=== PATIENT | female | born 1975 | race Caucasian/White ===

== ENCOUNTER 2019-11-10 14:13 | Emergency (ER) | payer BC, SELFPAY ==
[2019-11-10 14:35] VITALS: BP 115/69; PULSE 73; RESP 16; TEMP 36.9; O2SAT 99
--- NOTE | 2019-11-10 14:50 | ED.GENADULT ---
HPI - General Adult General Chief complaint: Nausea/Vomiting/Diarrhea Stated complaint: abd pain/nausea/vomiting/diarrhea Time Seen by Provider: 11/10/19 14:52 Source: patient and RN notes reviewed Mode of arrival: ambulatory Limitations: no limitations History of Present Illness HPI narrative: This is a 43 years old female presents to the office for an evaluation of cronh's flare . States, she has been dealing with pain for about one week. Symptoms include nauseous, vomiting, diarrhea and decreased appetite. Denies fever. Stated when she gets Crohn's flare her GI doctor often prescribe her prednisone. Admits to history of duodenal ulcer about 15 years ago. No recent abdominal surgery. She take [id number] antiacid medicine for her nauseous. HPI - Nausea/Vomiting/Diarrhea General Chief complaint: Nausea/Vomiting/Diarrhea Stated complaint: N/V/D Time Seen by Provider: 08/17/19 04:20 Source: patient Mode of arrival: ambulatory Limitations: no limitations History of Present Illness HPI Narrative: Patient is a 43-year-old female with history of Crohn's disease who presents for evaluation of nausea, vomiting diarrhea. Patient reports history of vomiting since Monday, she has had watery diarrhea without blood or mucus in it. No fever. Numerous sick contacts at home with similar symptoms. She takes 6-mercaptopurine for her Crohn's disease, Crohn's is currently in remission. She is not on any immune modulator therapy. Patient denies intermittent abdominal cramping, no current pain. Patient states she came in because she started to feel very dehydrated. Related Data Home Medications Medication Instructions Recorded Confirmed calcium carbonate [Tums] 200 mg PO DAILY 11/10/19 11/10/19 Allergies Allergy/AdvReac Type Severity Reaction Status Date / Time No Known Allergies Allergy Verified 11/10/19 14:36 Review of Systems Review of Systems: Narrative: CONSTITUTIONAL: Reports feeling malaise secondary to pain ENT: Denies congestion CARDIOVASCULAR: Denies chest pain RESPIRATORY: Denies cough GASTROINTESTINAL: Reports abdominal pain, nausea, vomiting, diarrhea. Denies bloody stools/dark color stools GENITOURINARY: Denies urinary symptoms SKIN: Denies rash MUSCULOSKELETAL: Denies acute back pain NEUROLOGIC: Denies lightheaded PMFSH Past Medical History Medical History Crohn's disease Social History Social History Smoking status: Current every day smoker Gender identity (if verbalized by the patient): Female Comments At time of signature, I agree with nursing past medical, surgical, social and family history. There is no relevant family history pertinent to the presenting complaint. Exam Narrative: Exam Narrative: GENERAL: This is a well-developed patient, older than state age, in no apparent distress. CARDIOVASCULAR: Regular rate and rhythm without murmurs, gallops, or rubs. RESPIRATORY: Clear to auscultation. Breath sounds equal bilaterally. No wheezes, rales, or rhonchi. GASTROINTESTINAL: Abdomen soft, tenderness throughout with palpation, nondistended, no rebound. Bowel sounds are active. Guarding noted. SKIN: warm, intact with no suspicious lesions or rash, good texture and turgor. NEURO: awake, alert, and oriented to person, place and time. There were no obvious focal neurologic abnormalities. Steady gait Giovanny Coma Scale Eye Opening: Spontaneous 4 [place] Coma Scale Motor: Obeys Commands 6 [place] Coma Scale Verbal: Oriented 5 Course Vital Signs Vital signs: Vital Signs Temperature 98.5 F 11/10/19 14:35 Pulse Rate 73 11/10/19 14:35 Respiratory Rate 16 11/10/19 14:35 Blood Pressure 115/69 11/10/19 14:35 Pulse Oximetry 99 11/10/19 14:35 Temperature 98.5 F 11/10/19 14:35 Pulse Rate 73 11/10/19 14:35 Respiratory Rate 16 11/10/19 14:35 Blood Press
== END 2019-11-10 15:04 | disposition home or self-care (01) ==
PROVIDERS: Emergency Provider Nurse Practitioner; PCP Family Medicine
DX: R10.9 Unspecified abdominal pain (principal); K50.90 Crohn's disease, unspecified, without complications; F17.200 Nicotine dependence, unspecified, uncomplicated; I34.1 Nonrheumatic mitral (valve) prolapse; R01.1 Cardiac murmur, unspecified
CPT/HCPCS: 99213; G0463

== ENCOUNTER 2020-08-17 08:25 | Emergency (ER) | payer BC, SELFPAY ==
--- NOTE | 2020-08-17 08:32 | ED.URI ---
HPI - URI/Sore Throat General Chief Complaint: Upper Respiratory Infection Stated Complaint: Lung Pain Time Seen by Provider: 08/17/20 08:40 Source: patient and RN notes reviewed Mode of arrival: ambulatory Limitations: no limitations History of Present Illness HPI Narrative: 42-year-old female presents with concern for lung pain when she coughs or takes a deep breath. Reports pain near the base of her left rib cage when she coughs, takes a deep breath. Reports increased cough for the past 1-1/2 weeks. Reports she had a sinus infection 1 month ago for which she began coughing, she states. Reports symptoms of that infection have resolved, reports the cough improved but is not gone. Reports she is concerned about the pain in her left lung when she coughs. She denies fever, chills, sweats, nausea, vomiting, loss of sense of taste or smell, sore throat, ear pain, nasal congestion, rhinorrhea, productive cough. Reports she had a Covid exposure a month ago and was tested, tested negative. MD elicited complaint: cough Related Data Home Medications Medication Instructions Recorded Confirmed adalimumab [Humira(CF) Pen] 40 mg SUBCUT BID 08/17/20 08/17/20 metoclopramide HCl 10 mg PO DAILY 08/17/20 08/17/20 sucralfate 1 g PO DAILY 08/17/20 08/17/20 Allergies Allergy/AdvReac Type Severity Reaction Status Date / Time No Known Allergies Allergy Verified 08/17/20 08:31 Review of Systems Review of Systems: Narrative: CONSTITUTIONAL: Denies malaise, chills, sweats, or fever. EYES: Denies visual changes, redness, or discharge. ENT: Denies rhinorrhea, congestion, sinus pain, otalgia and sore throat. CARDIOVASCULAR: Denies chest pain, palpitations, or edema. RESPIRATORY: Reports cough. Denies dyspnea. Reports left lung pain with coughing and deep breathing GASTROINTESTINAL: Denies abdominal pain, nausea, vomiting, diarrhea SKIN: Denies rash or itching. MUSCULOSKELETAL: Denies myalgia. NEUROLOGIC: Denies headache. All systems reviewed & are unremarkable except as noted in HPI and below PMFSH Past Medical History Medical History (Updated 08/17/20 @ 08:48 by Luanne Arriaza NP) Crohn's disease Social History Social History (Reviewed 11/10/19 @ 15:10 by JERSON Torres Smoking status: Current every day smoker Gender identity (if verbalized by the patient): Female Comments At time of signature, agree with nursing past medical, surgical, social and family history. There is no relevant family history pertinent to the presenting complaint Exam Narrative: Exam Narrative: GENERAL: Well-appearing, well-nourished, and in no acute distress. HEAD: Normocephalic EYES: PERRLA, conjunctivae clear ENT: Nares clear, turbinates pink, no discharge. Mucous membranes moist. TM pearly limon with dull light reflex bilaterally; no tragal tenderness. Oropharynx not erythematous without lesions. Tonsils not enlarged and without exudate, no drooling, no hoarseness, no trismus, uvula midline. NECK: Supple. No lymphadenopathy CHEST: Clear to auscultation, breath sounds equal. No wheezing, rhonchi, rales, or stridor. No respiratory distress, speaks in full sentences. No chest bruising, chest wall tenderness palpation HEART: Regular rate and rhythm. No murmur heard. SKIN: Warm, dry, no rash. NEURO: Alert and oriented x3. PSYCH: Normal mood and affect Course Course Emergency Course: Patient is aware of diagnosis, understands and agrees to treatment plan. Anticipatory guidance given. Patient agrees to follow-up as directed and is aware of reasons to seek care at the emergency department. Portions of this record may have been created with voice recognition software Vital Signs Vital signs: Vital Signs Temperature 97.9 F 08/17/20 08:33 Pulse Rate 82 08/17/20 08:33 Respiratory Rate 16 08/17/20 08:33 Blood Pressure 124/62 08/17/20 08:33 Pulse Oximetry 100 08/17/20 08:33 Temperature 97.9 F 08/17/20 08:42 Pulse Rate 82
[2020-08-17 08:33] VITALS: BP 124/62; PULSE 82; RESP 16; TEMP 36.6; O2SAT 100
[2020-08-17 08:42] VITALS: BP 124/62; PULSE 82; RESP 16; TEMP 36.6; O2SAT 100
== END 2020-08-17 08:53 | disposition home or self-care (01) ==
PROVIDERS: Emergency Provider Nurse Practitioner
DX: R09.1 Pleurisy (principal); F17.200 Nicotine dependence, unspecified, uncomplicated; K50.90 Crohn's disease, unspecified, without complications
CPT/HCPCS: 99213; G0463

== ENCOUNTER 2020-09-12 07:01 | Outpatient (NON) | payer BC, SELFPAY ==
[2020-09-12 21:50] LABS: SARS-CoV-2 RNA PCR Negative
== END 2020-09-12 07:02 ==
LOC: ANHCOVIDDT 07:02
PROVIDERS: PCP Family Medicine; Visit Provider Nurse Practitioner Family
DX: Z20.822 Contact with and (suspected) exposure to COVID-19 (principal); R05 Cough
CPT/HCPCS: C9803; U0003; U0005

== ENCOUNTER 2020-09-18 13:58 | Emergency (ER) | payer BC, SELFPAY ==
[2020-09-18 14:14] VITALS: BP 110/86; PULSE 85; RESP 16; TEMP 36.5; O2SAT 100
--- NOTE | 2020-09-18 14:18 | PC.NURSE ---
no preg test due to prior hysterectomy
[2020-09-18 14:27] LABS: Basophils Percent Auto 0.3 % (0.2-1.2); Eosinophils Absolute Auto 0.1 K/mm3 (0-0.3); Eosinophils Percent Auto 0.7 % (0-4.4); Hematocrit 43.1 % (37.0-47.0); Hemoglobin 14.7 g/dL (12.0-15.0); Immature Granulocyte Absolute 0.03 K/mm3 (0.00-0.031); Immature Granulocyte Percent A 0.3 % (0-0.5); Lymphocytes Absolute Auto 2.62 K/mm3 (0.9-3.2); Lymphocytes Percent Auto 26.7 % (18.3-44.2); Mean Corpuscular HGB Conc 34.1 g/dl (32-36); Mean Corpuscular Hemoglobin 31.4 pg (26-34); Mean Corpuscular Volume 92.1 fl (80-100); Mean Platelet Volume 9.7 fl (7.4-10.4); Monocytes Absolute Auto 0.6 K/mm3 (0.1-0.6); Monocytes Percent Auto 6.5 % (2.6-8.5); Neutrophils Absolute Auto 6.4 K/mm3 (1.3-6.7); Neutrophils Percent Auto 65.5 % (45.5-73.1); Platelet Count Result 367 k/mm3 (150-375); Red Blood Count 4.68 M/mm3 (4.2-5.4); Red Cell Distribution Width 12.7 % (11.5-14.5); White Blood Count 9.8 K/mm3 (4.5-10.0)
[2020-09-18 14:40] LABS: Alanine Aminotransferase 14 U/L (4-35); Albumin Level 4.5 g/dL (3.5-5.1); Alkaline Phosphatase 58 U/L (38-126); Anion Gap 5 mmol/L (8-16); Aspartate Amino Transferase 26 U/L (14-36); Bilirubin,Total 0.5 mg/dL (0.2-1.3); Blood Urea Nitrogen 12 mg/dL (7-17); Calcium 9.7 mg/dL (8.4-10.2); Carbon Dioxide 30 mmol/L (22-30); Chloride 101 mmol/L (98-107); Estimated CRCL calculation 71 ml/min; Estimated Glomerular Filt Rate > 60; Glucose 105 mg/dL (65-105); Lipase 53 U/L (23-300); Potassium 4.1 mmol/L (3.4-5.0); Sodium 136 mmol/L (137-145)
[2020-09-18 14:44] LABS: Add Urine Microscopic? YES; Appearance Urine Clear (Clear); Bilirubin Urine 1+ (Negative); Blood Urine 3+ (Negative); Color Urine Amber (Yellow); Glucose Urine UA Negative (Negative); Ketones Urine Trace mg/dL (Negative); Leukocyte Esterase Ur Negative LEU/UL (Negative); Mucus Urine Heavy /lpf; Nitrate Urine Negative (Negative); Protein Urine 2+ mg/dL (Negative); RBC Urine 21-50 /hpf (0-2); Squamous Epithelial Cell Urine Many /hpf (Few); WBC Urine 0-3 /hpf
[2020-09-18 14:50] LABS: Specific Grav Ur 1.039 (1.001-1.035)
[2020-09-18 15:21] VITALS: BP 123/81; PULSE 73
[2020-09-18 15:22] VITALS: BP 125/83; BP 134/86; PULSE 74; PULSE 82
--- NOTE | 2020-09-18 16:09 | ED.GENADULT ---
HPI - General Adult General Chief complaint: Nausea/Vomiting/Diarrhea Stated complaint: sinus congestion, n/v/d, low grade temp Time Seen by Provider: 09/18/20 15:27 History of Present Illness HPI narrative: Patient is a 44-year-old female who presents the emergency department with chief complaint of sinus congestion and vomiting. The patient reports that she was tested for Covid on the and was negative the patient reports that she has had sinus drainage and gets vomiting after she has a lot of drainage. Patient reports that she is not had a fever she was treated with Augmentin and has had some diarrhea after that. Patient states that it feels as though she has a bad sinus infection. Related Data Home Medications Medication Instructions Recorded Confirmed adalimumab [Humira(CF) Pen] 40 mg SUBCUT BID 08/17/20 08/17/20 metoclopramide HCl 10 mg PO DAILY 08/17/20 08/17/20 sucralfate 1 g PO DAILY 08/17/20 08/17/20 Allergies Allergy/AdvReac Type Severity Reaction Status Date / Time No Known Allergies Allergy Verified 09/18/20 14:18 Review of Systems Review of Systems: Narrative: A 10 system review of systems was completed on the patient and is negative except for what is stated in the HPI. Nursing and ancillary documentation was reviewed. [facility] Past Medical History Medical History (Updated 09/18/20 @ 16:12 by Rodri Chamorro MD) Crohn's disease Social History Social History Smoking status: Current every day smoker Gender identity (if verbalized by the patient): Female Exam Narrative: Exam Narrative: GENERAL: Well-appearing, well-nourished, and in no acute distress. HEAD: Normocephalic, atraumatic. EYES: PERRLA and EOMI. ENT: Nares clear, no rhinorrhea or epistaxis. Mucous membranes moist. NECK: Supple. CHEST: Clear to auscultation. No respiratory distress. HEART: Regular rate and rhythm. No murmur heard. Normal peripheral pulses. ABDOMEN: Soft, nontender, nondistended, normal active bowel sounds. EXTREMITIES: Normal range of motion. No edema. SKIN: Warm, dry, no rash. NEURO: No focal deficits. Alert and oriented x3. PSYCH: Normal mood and affect. Course Vital Signs Vital signs: Vital Signs Temperature 36.5 C 09/18/20 14:14 Pulse Rate 85 09/18/20 14:14 Respiratory Rate 16 09/18/20 14:14 Blood Pressure 110/86 09/18/20 14:14 Pulse Oximetry 100 09/18/20 14:14 Temperature 36.5 C 09/18/20 14:14 Pulse Rate 82 09/18/20 15:22 Respiratory Rate 16 09/18/20 14:14 Blood Pressure 134/86 09/18/20 15:22 Pulse Oximetry 100 09/18/20 14:14 Medical Decision Making Vital Signs Vital Signs: Vital Signs Temperature 36.5 C 09/18/20 14:14 Pulse Rate 85 09/18/20 14:14 Respiratory Rate 16 09/18/20 14:14 Blood Pressure 110/86 09/18/20 14:14 Pulse Oximetry 100 09/18/20 14:14 Temperature 36.5 C 09/18/20 14:14 Pulse Rate 82 09/18/20 15:22 Respiratory Rate 16 09/18/20 14:14 Blood Pressure 134/86 09/18/20 15:22 Pulse Oximetry 100 09/18/20 14:14 Lab Data Result diagrams: 09/18/20 14:19 09/18/20 14:19 Labs: Lab Results 09/18/20 09/18/20 09/18/20 Range/Units 14:19 14:19 14:23 WBC 9.8 (4.5-10.0) K/mm3 RBC 4.68 (4.2-5.4) M/mm3 Hgb 14.7 (12.0-15.0) g/dL Hct 43.1 (37.0-47.0) % MCV 92.1 (80-100) fl MCH 31.4 (26-34) pg MCHC 34.1 (32-36) g/dl RDW 12.7 (11.5-14.5) % Plt Count 367 (150-375) k/mm3 MPV 9.7 (7.4-10.4) fl Immature Gran % (Auto) 0.3 (0-0.5) % Neut % (Auto) 65.5 (45.5-73.1) % Lymph % (Auto) 26.7 (18.3-44.2) % Dickens % (Auto) 6.5 (2.6-8.5) % Eos % (Auto) 0.7 (0-4.4) % Baso % (Auto) 0.3 (0.2-1.2) % Lymph # (Auto) 2.62 (0.9-3.2) K/mm3 Dickens # (Auto) 0.6 (0.1-0.6) K/mm3 Eos # (Auto) 0.1 (0-0.3) K/mm3 Baso # (Auto) 0.0 (0.0-0.1) K
== END 2020-09-18 16:15 | disposition home or self-care (01) ==
PROVIDERS: Emergency Medicine; Emergency Provider Emergency Medicine; PCP Family Medicine
DX: J01.90 Acute sinusitis, unspecified (principal); K50.90 Crohn's disease, unspecified, without complications; F17.200 Nicotine dependence, unspecified, uncomplicated
CPT/HCPCS: 36415; 80053; 81001; 83690; 85025; 99283

== ENCOUNTER 2020-11-11 14:46 | Outpatient (CLI) | payer BC, SELFPAY ==
--- NOTE | ~2020-11-11 | CT_ITS ---
EXAMINATION: CT sinus wo con DATE: 11/11/2020 15:06 INDICATION: Nasal turbinate hypertrophy TECHNIQUE: Computed tomography (CT) of the paranasal sinuses was performed without contrast. Iterativ e reconstruction technique was employed. Exam dose: 305.77 mGy-cm total exam DLP. COMPARISON: 01/19/2006 CT sinuses FINDINGS: There is rightward deviation of the nasal septum. The nasal turbinates are moderately promi nent in size. The paranasal sinuses are normally developed and aerated. The ostiomeatal units are patent. There is partial opacification of the right mastoid air cells. The left mastoid air cells are normall y developed and aerated. Middle and inner ear apparatus appear unremarkable bilaterally. IMPRESSION: Right mastoid effusions Rightward deviation of nasal septum Reviewed, dictated and finalized at [facility] Reviewed, dictated and finalized at [facility].
== END 2020-11-11 14:47 | disposition home or self-care (01) ==
PROVIDERS: PCP Family Medicine; Visit Provider Otolaryngology
DX: J32.9 Chronic sinusitis, unspecified (principal); J34.3 Hypertrophy of nasal turbinates; J34.89 Other specified disorders of nose and nasal sinuses; R09.82 Postnasal drip; R44.8 Other symptoms and signs involving general sensations and perceptions; Z87.09 Personal history of other diseases of the respiratory system; J34.2 Deviated nasal septum
CPT/HCPCS: 70486

== ENCOUNTER → 2020-12-08 00:14 | Outpatient (CLI) | payer BC, SELFPAY ==
[2020-12-08 20:45] LABS: SARS-CoV-2 RNA PCR Negative
== END ==
PROVIDERS: PCP Family Medicine; Visit Provider Otolaryngology
DX: Z01.812 Encounter for preprocedural laboratory examination (principal); Z20.822 Contact with and (suspected) exposure to COVID-19
CPT/HCPCS: C9803; U0003; U0005

== ENCOUNTER 2020-12-08 08:21 | Outpatient (CLI) | payer BC, SELFPAY ==
--- NOTE | 2020-12-08 08:30 | ECG_ITS ---
Measurements Intervals [place] Rate: 62 P: -10 MO: 167 QRS: 73 QRSD: 82 T: 66 QT: 376 QTc: 383 Interpretive Statements SINUS RHYTHM BASELINE WANDER- I, II, III, AVR, AVL, AVF NORMAL ECG Electronically Signed On 12-08-2020 8:49:26 CDT by Song Vazquez D.O.
== END 2020-12-08 08:22 | disposition home or self-care (01) ==
PROVIDERS: PCP Family Medicine; Visit Provider Otolaryngology
DX: E78.5 Hyperlipidemia, unspecified (principal); Z01.818 Encounter for other preprocedural examination
CPT/HCPCS: 93005

== ENCOUNTER 2020-12-11 00:36 | Day surgery (SDC) | payer BC, SELFPAY ==
[2020-11-27 11:12] VITALS: BMI 20.9
--- NOTE | 2020-12-10 10:41 | PM.IMHP ---
H&P: HPI History of Present Illness Date/Time: 12/10/20 10:41 45-year-old female presents for planned surgical procedures. Reports no new changes in her symptoms or medical history. Chief Complaint: Nasal obstruction, septal deviation, inferior turbinate hypertrophy Review of Systems Constitutional: Constitutional: Denies fatigue, Denies fever(s) and Denies lethargy Eyes: Eyes: Denies blurry vision and Denies change in vision ENT: Reports as per HPI Cardiovascular: Cardiovascular: Denies chest pain Respiratory: Respiratory: Denies cough Endocrine: Endocrine: Denies fatigue Hematologic/Lymphatic: Hematologic/Lymphatic: Denies easy bleeding, Denies easy bruising and Denies lymphadenopathy Allergic/Immunologic: Allergic/Immunologic: Denies seasonal rhinorrhea [facility] Past Medical History Medical History (Updated 12/10/20 @ 10:42 by Damir Brito MD) Crohn's disease Family History Family History (Updated 10/06/20 @ 15:51 by Meghna Chou CMA) Father Diabetes mellitus Hypertension Mother Diabetes mellitus Grandparent Diabetes mellitus Heart disease Grandparent Diabetes mellitus Social History Social History (Updated 10/06/20 @ 15:52 by Meghna Chou BUILDING TECH) Smoking packs per day: 0.5 Smoking cigarettes per day: 10.0 Years smoked: 16 Smoking pack-years: 8.00 Smoking status: Current every day smoker Tobacco type: cigarettes Alcohol intake: never Substance use: never Substance use type: does not use Gender identity (if verbalized by the patient): Female Spiritual care concerns: No Meds Home Medications and Allergies Home Medications Medication Instructions Recorded Confirmed Type adalimumab [Humira(CF) Pen] 40 mg SUBCUT Q14D 08/17/20 11/27/20 History metoclopramide HCl 10 mg PO DAILY 08/17/20 11/27/20 History sucralfate 1 g PO DAILY 08/17/20 11/27/20 History fluticasone propionate 50 1 - 2 spray INTRANASAL DAILY #16 g 10/06/20 11/27/20 Rx mcg/actuation nasal spray,suspension omeprazole 40 mg capsule,delayed 40 mg PO BID 10/06/20 11/27/20 History release atorvastatin [Lipitor] 5 mg PO HS 11/27/20 11/27/20 History budesonide 3 mg PO BID 11/27/20 11/27/20 History mupirocin 1 applic TOPICAL DAILY 11/27/20 11/27/20 History Allergies Allergy/AdvReac Type Severity Reaction Status Date / Time No Known Allergies Allergy Verified 11/27/20 11:09 Exam Const: General: cooperative, healthy appearing, comfortable, well developed and alert HENMT: Head: normal to inspection, normocephalic and atraumatic Ears: hearing grossly normal bilaterally, external ears normal, TM's normal bilaterally and EAC's normal General nose exam: Normal external nose present, Normal nares present, No nasal polyps present, mucous membranes and turbinates abnormal, abnormal septum and Other nasal findings present ( Septal deviation inferior turbinate hypertrophy) Face and sinus: normal facial exam Mouth: Yes Normal oral and palatal mucosa present, Yes lip normal, Yes tongue normal, Yes oropharynx normal and Yes moist mucous membranes Teeth and gingiva: dentition normal and gingiva normal Throat: posterior oropharynx normal, tonsils normal and uvula midline Eyes: General: appearance normal, both eyes and all related structures Periorbital: periorbital findings normal Eyelids: eyelids normal Conjunctivae: conjunctivae normal Sclera: sclerae normal Neck: Neck: normal visual inspection, full ROM and no lymphadenopathy Thyroid: thyroid normal Lymphatic: no lymphadenopathy noted Resp: Effort & Inspection: normal respiratory effort and able to speak in complete sentences Cardio: Jugular venous distension: no JVD Neuro: Cranial nerves: Yes CN's II-XII intact bilaterally Assessment and Plan Assessment and plan (1) Hypertrophy of both inferior nasal turbinates: Code(s): J34.3 - Hypertrophy of nasal turbinates Status: Acute Assessment and Plan: plan i
--- NOTE | 2020-12-11 07:09 | WPDHPUPDATE1 ---
History and Physical Update Update Date/Time: 12/11/20 07:09 History and Physical has been reviewed, including an updated exam of the patient. There are NO changes in the patient's condition. Risks, benefits, and alternatives have been discussed and questions answered. Patient agrees to proceed with procedure.
[2020-12-11 12:18] VITALS: BP 104/63; PULSE 65; RESP 16; TEMP 36.3; O2SAT 100
[2020-12-11] MEDS: ACETAMINOPHEN 500 MG TABLET 1000 MG PO (12:23)
--- NOTE | 2020-12-11 12:31 | WPDANESEPPF ---
Anes - Initial Pre Proc Eval Procedure: Operation Date: 12/11/20 13:30 Proposed Procedures p Septoplasty, - Damir Brito MD s Bilateral Inferior Turbinectomy - Damir Brito MD Date/Time: 12/11/20 12:31 Surgeon: Damir Brito MD Pre Op Diagnosis: septal deviation, turbinate hypertrophy Patient Data Age: 45 Gender: F Height: 5 ft 2 in Weight: 52.35 kg Allergies Allergy/AdvReac Type Severity Reaction Status Date / Time No Known Allergies Allergy Verified 12/11/20 12:19 Home Medications Medication Instructions Recorded Confirmed Type adalimumab [Humira(CF) Pen] 40 mg SUBCUT Q14D 08/17/20 12/11/20 History metoclopramide HCl 10 mg PO DAILY 08/17/20 12/11/20 History fluticasone propionate 50 1 - 2 spray INTRANASAL DAILY #16 g 10/06/20 12/11/20 Rx mcg/actuation nasal spray,suspension omeprazole 40 mg capsule,delayed 40 mg PO BID 10/06/20 12/11/20 History release atorvastatin [Lipitor] 5 mg PO HS 11/27/20 12/11/20 History budesonide 3 mg PO BID 11/27/20 12/11/20 History mupirocin 1 applic TOPICAL DAILY 11/27/20 12/11/20 History Patient hx anesthesia problems: post op nausea/vomiting Family hx anesthesia problems: none PMFSH Past Medical History Medical History Crohn's disease Hyperlipidemia MVP (mitral valve prolapse) Family History Family History Father Diabetes mellitus Hypertension Mother Diabetes mellitus Grandparent Diabetes mellitus Heart disease Grandparent Diabetes mellitus Social History Social History Smoking packs per day: 0.5 Smoking cigarettes per day: 10.0 Years smoked: 16 Smoking pack-years: 8.00 Smoking status: Current every day smoker Tobacco type: cigarettes Alcohol intake: never Substance use: never Substance use type: does not use Living arrangements: with family Gender identity (if verbalized by the patient): Female Spiritual care concerns: No Anes - Eval Final PreProcedure Day of Procedure 12/11/20 12:31 Patient weight: normal Heart: regular rate and rhythm Lungs: decreased breath sounds Airway: Mallampati scale class II Neurological: alert and oriented Last oral intake: >/= 8 hours ASA classification: III Emergent: no Anesthetic plan: proceed Anesthesia type and monitoring: general ETT and standard monitoring Informed Consent: The patient's anesthetic plan and its attendant risks and benefits were discussed with the patient/family/POA. Questions were solicited and answers provided to the satisfaction of the patient/family/POA.
[2020-12-11] MEDS: LACTATED RINGERS 1,000 ML 30 ML IV CONT ×2 (12:34→17:05)
[2020-12-11] MEDS: SCOPOLAMINE 1.5 MG PATCH TRANSDERM (12:55)
--- NOTE | 2020-12-11 14:43 | SUR.PREOP ---
pt informed when arrived that delay in procedure.
[2020-12-11] MEDS: ceFAZolin 2 GM/D5W 50 ML 2 GM/50 ML BAG IVPB (14:54)
[2020-12-11] MEDS: LIDO 1%/EPINEPHRINE 1:100,000 50 ML VIAL INFILTRATE (15:00)
[2020-12-11 17:10] VITALS: BP 127/63; PULSE 83; RESP 12; TEMP 36.3; O2SAT 100
--- NOTE | 2020-12-11 17:21 | PM.PROC ---
Procedure Note - Detailed Date of procedure: 12/11/20 Pre-op diagnosis: septal deviation, turbinate hypertrophy nasopharyngeal mass Post-op diagnosis: same Procedure performed: 1. Endoscopic assisted septoplasty 2. Inferior turbinate reduction submucosally with outfracture 3. Nasopharyngeal biopsy endoscopically Description of procedure: The patient was correctly identified and consent was verified in the preoperative holding area. The patient was then brought to the operating room and a time-out performed. General anesthesia was induced and endotracheal tube was secured the patient's airway and taped to the left lower lip. Afrin-soaked pledgets were then placed in the bilateral nasal passages and allowed to sit for 5 minutes. They were removed. The patient was then prepped and draped for the aforementioned procedures. 8 cc of 1% lidocaine with 1 100,000 parts epinephrine was injected deep to the mucoperichondrium of the nasal septum. A Man type incision was then made on the left and bilateral nasal septal flaps were elevated of note there is a significant right perforation as there was a severe right septal spur running basically the entire length of the septum. The perforation was not the entire length a caudal and posterior septum were spared. Deviated septum was removed with osteotome John Lynch forceps endoscopic scissors and Art forceps. Septum was then closed anteriorly with interrupted 5 0 fast gut sutures. The turbinates were then entered anteriorly and debrided submucosally using the microdebrider with inferior turbinate blade there were then outfractured mulberry tips were debrided and any bleeding was cauterized using Bovie suction electrocautery. At this time a nasopharyngeal mass was noted it resembled adenoid tissue. Biopsies were taken and any bleeding cauterized. Richard splints were then placed and sutured anteriorly using a 3 0 mattressed nylon suture. The left Richard splint had the airway removed. I performed all dictated portions of the procedure hemostasis was adequate. Care of the patient was turned over to Anesthesiology. Anesthesia: GETA Surgeon: Damir Brito MD Estimated blood loss (mL): 20 Pathology: yes Complications: No immediate complications Condition: stable Disposition: PACU Findings: Significant right mid posterior as well as caudal deviation adequate straightening of the septum significant inferior turbinate hypertrophy especially posteriorly adequately reduced and outfractured nasopharyngeal mass biopsied
[2020-12-11 17:25] VITALS: BP 115/67; PULSE 81; RESP 16; O2SAT 100
[2020-12-11 17:40] VITALS: BP 116/62; PULSE 84; RESP 18; O2SAT 100
[2020-12-11 17:50] VITALS: BP 125/64; PULSE 74; RESP 14
== END 2020-12-11 18:30 | disposition home or self-care (01) ==
PROVIDERS: PCP Family Medicine; Visit Provider Otolaryngology
PROC: (CPT 30520; principal; 2020-12-11 13:30)
PROC: (CPT 30520; 2020-12-11 13:30)
DX: J34.2 Deviated nasal septum (principal); J34.3 Hypertrophy of nasal turbinates; J39.2 Other diseases of pharynx; F17.210 Nicotine dependence, cigarettes, uncomplicated; E78.5 Hyperlipidemia, unspecified; I34.1 Nonrheumatic mitral (valve) prolapse; K50.90 Crohn's disease, unspecified, without complications
CPT/HCPCS: 30520; 30140; 31237; 88304; 88305; 93005; A9270; C9803; J0330; J0690; J1100; J2250; J2405; J2704; J3010; J7120; U0003; U0005

== ENCOUNTER 2020-12-16 16:49 | Emergency (ER) | payer BC, SELFPAY ==
[2020-12-16 16:52] VITALS: BP 130/93; PULSE 85; RESP 14; TEMP 36.6; O2SAT 98
[2020-12-16 17:01] VITALS: BP 130/97; PULSE 85; RESP 18; TEMP 36.1; O2SAT 99
--- NOTE | 2020-12-16 17:14 | ED.GENADULT ---
HPI - General Adult General Chief complaint: Unspecified Stated complaint: vomiting Time Seen by Provider: 12/16/20 16:59 Source: patient, family and old records reviewed Mode of arrival: ambulatory Limitations: no limitations History of Present Illness HPI narrative: Patient is a 45-year-old female who presents with nausea and vomiting has been present initially is nausea after septal surgery several days prior by Dr. Brito. Patient was seen in office today and had her splints removed went home and experienced vomiting had attempted to take a Zofran which was prescribed by Dr. Brito with no improvement. Patient notes history of Crohn's disease followed by Dr. Romero. Patient denies any diarrhea rectal bleeding melena hematemesis fever chills or recent illness. Patient with history of tobacco abuse. Patient notes she has not had a bowel movement since the surgery but denies abdominal pain Related Data Home Medications Medication Instructions Recorded Confirmed Humira(CF) Pen 40 mg SUBCUT Q14D 08/17/20 12/16/20 metoclopramide HCl 10 mg PO DAILY 08/17/20 12/16/20 omeprazole 40 mg capsule,delayed 40 mg PO BID 10/06/20 12/16/20 release atorvastatin [Lipitor] 5 mg PO HS 11/27/20 12/16/20 budesonide 3 mg PO BID 11/27/20 12/16/20 mupirocin 1 applic TOPICAL DAILY 11/27/20 12/16/20 Allergies Allergy/AdvReac Type Severity Reaction Status Date / Time No Known Allergies Allergy Verified 12/16/20 15:28 Review of Systems Review of Systems: All systems reviewed & are unremarkable except as noted in HPI and below PMFSH Past Medical History Medical History Crohn's disease Hyperlipidemia MVP (mitral valve prolapse) Family History Family History Father Diabetes mellitus Hypertension Mother Diabetes mellitus Grandparent Diabetes mellitus Heart disease Grandparent Diabetes mellitus Social History Social History Smoking packs per day: 0.5 Smoking cigarettes per day: 10.0 Years smoked: 16 Smoking pack-years: 8.00 Smoking status: Current every day smoker Tobacco type: cigarettes Alcohol intake: never Substance use: never Substance use type: does not use Gender identity (if verbalized by the patient): Female Spiritual care concerns: No Exam Narrative: Exam Narrative: GENERAL: Well-appearing, well-nourished, and in no acute distress. HEAD: Normocephalic, atraumatic. EYES: PERRLA and EOMI. ENT: Nares clear, no rhinorrhea or epistaxis. Mucous membranes moist. CHEST: Clear to auscultation. No respiratory distress. No wheezes rales or rhonchi HEART: Regular rate and rhythm. No murmur heard. Normal peripheral pulses. ABDOMEN: Soft, nontender, nondistended, EXTREMITIES: Normal range of motion. No edema. SKIN: Warm, dry, no rash. NEURO: No focal deficits. Alert and oriented x3. PSYCH: Normal mood and affect. Course Course Emergency Course: Patient in the room no distress feeling better prefers to go home at this time has been hydrated no emesis tolerating p.o. intake patient will follow with her specialist and primary care and agrees to return if symptoms worsen hemodynamically stable ABCs and vital signs intact Vital Signs Vital signs: Vital Signs Temperature 97.8 F 12/16/20 16:52 Pulse Rate 85 12/16/20 16:52 Respiratory Rate 14 12/16/20 16:52 Blood Pressure 130/93 H 12/16/20 16:52 Pulse Oximetry 98 12/16/20 16:52 Temperature 97.0 F L 12/16/20 17:01 Pulse Rate 85 12/16/20 17:01 Respiratory Rate 18 12/16/20 17:01 Blood Pressure 130/97 H 12/16/20 17:01 Pulse Oximetry 99 12/16/20 17:01 Medical Decision Making MDM Narrative Medical decision making narrative: Patient evaluated for vomiting no distress at this time resting comfortably will be discharged home patient and her karyban
[2020-12-16 17:21] LABS: Basophils Percent Auto 0.3 % (0.2-1.2); Eosinophils Absolute Auto 0.1 K/mm3 (0-0.3); Eosinophils Percent Auto 0.6 % (0-4.4); Hematocrit 44.1 % (37.0-47.0); Immature Granulocyte Absolute 0.03 K/mm3 (0.00-0.031); Immature Granulocyte Percent A 0.3 % (0-0.5); Lymphocytes Absolute Auto 3.09 K/mm3 (0.9-3.2); Lymphocytes Percent Auto 26.8 % (18.3-44.2); Monocytes Absolute Auto 0.8 K/mm3 (0.1-0.6); Monocytes Percent Auto 6.7 % (2.6-8.5); Neutrophils Absolute Auto 7.5 K/mm3 (1.3-6.7); Neutrophils Percent Auto 65.3 % (45.5-73.1); Platelet Count Result 324 k/mm3 (150-375); Red Blood Count 4.69 M/mm3 (4.2-5.4); Red Cell Distribution Width 12.6 % (11.5-14.5); White Blood Count 11.5 K/mm3 (4.5-10.0)
[2020-12-16] MEDS: SODIUM CHLORIDE 0.9% IV 1,000 ML 999 ML IV CONT (17:23)
[2020-12-16] MEDS: PROCHLORPERAZINE EDISYLATE 10 MG/2 ML VIAL IV PUSH (17:23)
[2020-12-16] MEDS: FAMOTIDINE 20 MG/2 ML VIAL IV PUSH (17:24)
[2020-12-16 17:30] LABS: Alanine Aminotransferase 11 U/L (4-35); Albumin Level 4.6 g/dL (3.5-5.1); Alkaline Phosphatase 52 U/L (38-126); Anion Gap 8 mmol/L (8-16); Aspartate Amino Transferase 25 U/L (14-36); Bilirubin,Total 0.8 mg/dL (0.2-1.3); Blood Urea Nitrogen 15 mg/dL (7-17); Calcium 8.9 mg/dL (8.4-10.2); Carbon Dioxide 28 mmol/L (22-30); Chloride 101 mmol/L (98-107); Estimated CRCL calculation 71 ml/min; Estimated Glomerular Filt Rate > 60; Glucose 106 mg/dL (65-105); Lipase 43 U/L (23-300); Sodium 137 mmol/L (137-145)
[2020-12-16 18:19] LABS: Add Urine Microscopic? YES; Appearance Urine Cloudy (Clear); Bacteria Urine Trace /hpf; Bilirubin Urine Negative (Negative); Blood Urine 2+ (Negative); Color Urine Yellow (Yellow); Glucose Urine UA Negative (Negative); Ketones Urine 2+ mg/dL (Negative); Leukocyte Esterase Ur Negative LEU/UL (Negative); Mucus Urine Heavy /lpf; Nitrate Urine Negative (Negative); Protein Urine 1+ mg/dL (Negative); RBC Urine 21-50 /hpf (0-2); Specific Grav Ur 1.027 (1.001-1.035); Squamous Epithelial Cell Urine Many /hpf (Few); Urobilinogen Urine Negative mg/dL (<2.0); WBC Urine 0-3 /hpf
[2020-12-16 20:34] VITALS: BP 138/72; PULSE 80; RESP 18; O2SAT 99
== END 2020-12-16 20:35 | disposition home or self-care (01) ==
PROVIDERS: Emergency Medicine Emergency Medical Services; Emergency Provider Emergency Medicine; PCP Family Medicine
DX: R11.2 Nausea with vomiting, unspecified (principal); K50.90 Crohn's disease, unspecified, without complications; E78.5 Hyperlipidemia, unspecified; I34.1 Nonrheumatic mitral (valve) prolapse; F17.210 Nicotine dependence, cigarettes, uncomplicated
CPT/HCPCS: 36415; 80053; 81001; 81025; 83690; 85025; 96361; 96374; 96375; 99284; J0131; J0780; J7030

== ENCOUNTER 2021-04-07 09:49 | Outpatient (CLI) | payer BC, SELFPAY ==
--- NOTE | ~2021-04-07 | XR_ITS ---
EXAMINATION: XR abdomen/kub 1V INDICATION: Microscopic hematuria TECHNIQUE: Supine views of the abdomen were obtained on 2 radiographs. COMPARISON: CT from today FINDINGS: There are phleboliths of the pelvis. No urolithiasis is identified. The bowel gas pattern i s normal. Cholecystectomy clips are noted in the right upper quadrant. The visualized lung bases are clear. IMPRESSION: 1. No urolithiasis identified. Reviewed, dictated and finalized at location [facility].
--- NOTE | ~2021-04-07 | CT_ITS ---
EXAMINATION: CT abdomen pelvis wo/w con DATE: 04/07/2021 10:39 INDICATION: Microscopic hematuria. History of kidney stones and Crohn's disease. TECHNIQUE: Computed tomography (CT) of the abdomen and pelvis was performed without and subsequently with 130 cc Omnipaque 350 intravenous contrast. Automated exposure control and iterative reconstructi on technique were employed. Exam dose: 732.14 mGy-cm total exam DLP. COMPARISON: 04/07/2021 KUB 12/06/2008 CT abdomen FINDINGS: Minimal dependent atelectasis of the lower lobes. Normal heart size. No pericardial or pleu ral effusion. Status post cholecystectomy. The liver, spleen, pancreas, and adrenal glands and kidneys appear normal. No bile duct or pancreatic duct dilatation. No urinary tract calculus or hydroureteronephrosis. The urinary bladder is unremarkable. Normal caliber of the abdominal aorta. No intraperitoneal or retroperitoneal or pelvic mass lesion or adenopathy or ascites. There is prominent thickening of the wall of the terminal ileum and another distal ileal skip segment with wall thickening; given clinical history of Crohn's disease. No bowel obstruction or intraperito salina free air. Very small fat-containing umbilical hernia. IMPRESSION: Terminal ileum and skip segment distal ileum prominent small bowel wall thickening, cons istent with given history of Crohn's disease No urinary tract mass lesion, calculus or hydroureteronephrosis is detected. Reviewed, dictated and finalized at [facility]. Reviewed, dictated and finalized at location [facility]. IMPRESSION: Terminal ileum and skip segment distal ileum prominent small bowel wall thickening, consistent with given history of Crohn's disease No urinary tract mass lesion, calculus or hydroureteronephrosis is detected.
[2021-04-07 10:16] LABS: Estimated Glomerular Filt Rate > 60
== END 2021-04-07 09:50 ==
LOC: MICIMG 09:51
PROVIDERS: PCP Family Medicine; Visit Provider Nurse Practitioner Family
DX: R31.29 Other microscopic hematuria (principal)
CPT/HCPCS: 74018; 74178; Q9967

== ENCOUNTER → 2021-04-20 03:14 | Outpatient (CLI) | payer BC, SELFPAY ==
[2021-04-20 19:41] LABS: SARS-CoV-2 RNA PCR Negative
== END ==
PROVIDERS: PCP Family Medicine; Visit Provider Otolaryngology
DX: Z01.812 Encounter for preprocedural laboratory examination (principal); Z20.822 Contact with and (suspected) exposure to COVID-19
CPT/HCPCS: C9803; U0003; U0005

== ENCOUNTER 2021-04-23 02:43 | Day surgery (SDC) | payer BC, SELFPAY ==
[2021-04-19 12:44] VITALS: BMI 21.0
--- NOTE | 2021-04-22 09:16 | PM.IMHP ---
H&P: HPI History of Present Illness Date/Time: 04/22/21 09:16 patient presents for planned surgical procedure. No change in symptoms no change in medical history. Chief Complaint: Postnasal drip, chronic adenoiditis, acute adenoiditis, throat pain Review of Systems Constitutional: Constitutional: Denies fatigue, Denies fever(s) and Denies lethargy Eyes: Eyes: Denies blurry vision and Denies change in vision ENT: Reports as per HPI Cardiovascular: Cardiovascular: Denies chest pain Respiratory: Respiratory: Denies cough Endocrine: Endocrine: Denies fatigue Hematologic/Lymphatic: Hematologic/Lymphatic: Denies easy bleeding, Denies easy bruising and Denies lymphadenopathy Allergic/Immunologic: Allergic/Immunologic: Denies seasonal rhinorrhea [facility] Past Medical History Medical History Crohn's disease Hyperlipidemia MVP (mitral valve prolapse) Family History Family History Father Diabetes mellitus Hypertension Mother Diabetes mellitus Grandparent Diabetes mellitus Heart disease Grandparent Diabetes mellitus Social History Social History (System 04/09/21 @ 09:28 by Mami Garcia) Smoking packs per day: 0.5 Smoking cigarettes per day: 10.0 Years smoked: 16 Smoking pack-years: 8.00 Smoking status: Current every day smoker Tobacco type: cigarettes Second hand tobacco smoke exposure: Yes Alcohol intake: never Substance use: never Substance use type: does not use Additional living arrangements comments: SIGNIFICANT OTHER Gender identity (if verbalized by the patient): Female Spiritual care concerns: No Meds Home Medications and Allergies Home Medications Medication Instructions Recorded Confirmed Type metoclopramide HCl 10 mg PO DAILY 08/17/20 04/19/21 History fluticasone propionate 50 1 - 2 spray INTRANASAL DAILY #16 g 10/06/20 04/19/21 Rx mcg/actuation nasal spray,suspension omeprazole 40 mg capsule,delayed 40 mg PO BID 10/06/20 04/19/21 History release budesonide 3 mg PO BID 11/27/20 04/19/21 History famotidine [Pepcid] 20 mg PO BID #14 tablet 12/16/20 04/19/21 Rx Allergies Allergy/AdvReac Type Severity Reaction Status Date / Time No Known Allergies Allergy Verified 04/09/21 09:28 Exam Const: General: cooperative, healthy appearing, comfortable, well developed and alert HENMT: Head: normal to inspection, normocephalic and atraumatic Ears: hearing grossly normal bilaterally, external ears normal, TM's normal bilaterally and EAC's normal General nose exam: Normal external nose present, Normal nares present, No nasal polyps present, Normal nasal mucous membranes and turbinates present and Normal septum present Face and sinus: normal facial exam Mouth: Yes Normal oral and palatal mucosa present, Yes lip normal, Yes tongue normal, Yes oropharynx normal and Yes moist mucous membranes Teeth and gingiva: dentition normal and gingiva normal Throat: posterior oropharynx normal, tonsils normal and uvula midline Eyes: General: appearance normal, both eyes and all related structures Periorbital: periorbital findings normal Eyelids: eyelids normal Conjunctivae: conjunctivae normal Sclera: sclerae normal Neck: Neck: normal visual inspection, full ROM and no lymphadenopathy Thyroid: thyroid normal Lymphatic: no lymphadenopathy noted Resp: Effort & Inspection: normal respiratory effort and able to speak in complete sentences Cardio: Jugular venous distension: no JVD Neuro: Cranial nerves: Yes CN's II-XII intact bilaterally Assessment and Plan Assessment and plan (1) Acute adenoiditis: Code(s): J03.90 - Acute tonsillitis, unspecified Status: Acute Assessment and Plan: Plan is for the operating room for endoscopic adenoidectomy I will need a 4 mm micro debrider and suction Bovie electrocautery, total ope
[2021-04-23] VITALS (7 sets, daily range): BP systolic 92–109; BP diastolic 46–68; PULSE 58–74; RESP 16–24; TEMP 36.6–36.8; O2SAT 97–100
--- NOTE | 2021-04-23 07:07 | WPDHPUPDATE1 ---
History and Physical Update Update Date/Time: 04/23/21 07:07 History and Physical has been reviewed, including an updated exam of the patient. There are NO changes in the patient's condition. Risks, benefits, and alternatives have been discussed and questions answered. Patient agrees to proceed with procedure.
[2021-04-23] MEDS: LACTATED RINGERS 1,000 ML 30 ML IV CONT (11:19)
[2021-04-23] MEDS: ACETAMINOPHEN 500 MG TABLET 1000 MG PO (11:20)
--- NOTE | 2021-04-23 11:59 | WPDANESEPPF ---
Anes - Initial Pre Proc Eval Procedure: Operation Date: 04/23/21 13:30 Proposed Procedures p Endoscopic Adenoidectomy - Damir Brito MD Date/Time: 04/23/21 11:59 Surgeon: Damir Brito MD Pre Op Diagnosis: hypertrophic adenoids Patient Data Age: 45 Gender: F Height: 1.57 m Weight: 51.2 kg Last Vital Signs Temp 97.9 F 04/23/21 10:40 Pulse 72 04/23/21 10:40 Resp 16 04/23/21 10:40 BP 100/60 04/23/21 10:40 Pulse Ox 100 04/23/21 10:40 Allergies Allergy/AdvReac Type Severity Reaction Status Date / Time No Known Allergies Allergy Verified 04/23/21 11:48 Home Medications Medication Instructions Recorded Confirmed Type metoclopramide HCl 10 mg PO DAILY 08/17/20 04/23/21 History fluticasone propionate 50 1 - 2 spray INTRANASAL DAILY #16 g 10/06/20 04/23/21 Rx mcg/actuation nasal spray,suspension omeprazole 40 mg capsule,delayed 40 mg PO BID 10/06/20 04/23/21 History release budesonide 3 mg PO BID 11/27/20 04/23/21 History famotidine [Pepcid] 20 mg PO BID #14 tablet 12/16/20 04/23/21 Rx Patient hx anesthesia problems: none Family hx anesthesia problems: none PMFSH Past Medical History Medical History Crohn's disease Hyperlipidemia MVP (mitral valve prolapse) Family History Family History Father Diabetes mellitus Hypertension Mother Diabetes mellitus Grandparent Diabetes mellitus Heart disease Grandparent Diabetes mellitus Social History Social History (System 04/09/21 @ 09:28 by Mami Garcia) Smoking packs per day: 0.5 Smoking cigarettes per day: 10.0 Years smoked: 16 Smoking pack-years: 8.00 Smoking status: Current every day smoker Tobacco type: cigarettes Second hand tobacco smoke exposure: Yes Alcohol intake: never Substance use: never Substance use type: does not use Living arrangements: other Additional living arrangements comments: SIGNIFICANT OTHER Gender identity (if verbalized by the patient): Female Spiritual care concerns: No Anes - Eval Final PreProcedure Day of Procedure 04/23/21 11:59 Patient weight: normal Heart: regular rate and rhythm Lungs: clear to auscultation Airway: Mallampati scale class II Neurological: alert and oriented Last oral intake: >/= 8 hours ASA classification: III Emergent: no Anesthetic plan: proceed Anesthesia type and monitoring: general ETT and standard monitoring Informed Consent: The patient's anesthetic plan and its attendant risks and benefits were discussed with the patient/family/POA. Questions were solicited and answers provided to the satisfaction of the patient/family/POA.
[2021-04-23] MEDS: ceFAZolin 2 GM/D5W 50 ML 2 GM/50 ML BAG IVPB (13:02)
[2021-04-23] MEDS: OXYMETAZOLINE HCL 0.05% NAS 15 ML BTL (*BKC) 1 SPRAY NASAL (13:22)
--- NOTE | 2021-04-23 13:51 | W.PM.PROC2 ---
Procedure Note - Detailed Date of Procedure 04/23/21 Pre-op Diagnosis hypertrophic adenoids, chronic adenoiditis, persistent postnasal drip Post-op Diagnosis same Procedure Performed 1. Endoscopic adenoidectomy Surgeon Damir Brito MD Medical Translator None Anesthesia general Indications See above Findings Purulent material within the adenoid cavity possible cyst cavity regardless more soupy a lysed opened cauterized Description of Procedure The patient was correctly identified consent was verified in the preoperative holding area. The patient was then brought to the operating time-out was performed. General anesthesia was induced and endotracheal tube was secured the patient's airway. The patient was then prepped and draped for the aforementioned procedure. Time-out was performed again Afrin-soaked pledgets were placed in the bilateral nasal passages and allowed to sit for 5 minutes. Bilateral nasal passages examined with 0 degree endoscope. There was purulence emanating from a cavity within the remnant adenoid pad versus nasopharyngeal cyst. This was opened with a microdebrider and then cauterized to the bone/clivus deep to it. The it hemostasis was achieved using the intermittent application of Afrin-soaked pledgets. Following the procedure all the pledgets were removed and hemostasis was excellent. I performed all dictated portions of the procedure care of the patient was turban turned over to Anesthesiology. There were no immediate complications. Estimated Blood Loss 5 Drains No Packing No Pathology none sent Complications No immediate complications Condition stable Disposition PACU
== END 2021-04-23 14:52 | disposition home or self-care (01) ==
PROVIDERS: PCP Family Medicine; Visit Provider Otolaryngology
PROC: (CPT 42831; principal; 2021-04-23 13:30)
DX: J03.90 Acute tonsillitis, unspecified (principal); J35.02 Chronic adenoiditis; J34.89 Other specified disorders of nose and nasal sinuses; K50.90 Crohn's disease, unspecified, without complications; E78.5 Hyperlipidemia, unspecified; I34.1 Nonrheumatic mitral (valve) prolapse; F17.210 Nicotine dependence, cigarettes, uncomplicated
CPT/HCPCS: 42831; A9270; C9803; J0330; J0690; J1100; J2250; J2405; J2704; J3010; J7120; U0003; U0005

== ENCOUNTER → 2021-09-14 02:17 | Outpatient (CLI) | payer BC, SELFPAY ==
[2021-09-14 19:52] LABS: SARS-CoV-2 RNA PCR Positive
== END ==
PROVIDERS: PCP Family Medicine; Visit Provider Family Medicine
DX: U07.1 COVID-19 (principal)
CPT/HCPCS: C9803; U0003; U0005

== ENCOUNTER 2022-09-07 09:55 | Emergency (ER) | payer OTHER, SELFPAY ==
[2022-09-07 10:06] VITALS: BP 127/79; PULSE 87; RESP 18; TEMP 36.4; O2SAT 100
[2022-09-07 10:07] VITALS: BP 127/79; PULSE 87; RESP 18; TEMP 36.4; O2SAT 100
--- NOTE | 2022-09-07 10:17 | ED.EYEPROB ---
HPI - Eye Problem General Chief complaint: Eye Problems Stated complaint: Lt Eye Irritation Time Seen by Provider: 09/07/22 10:17 Source: patient Mode of arrival: ambulatory Limitations: no limitations History of Present Illness HPI Narrative: 46-year-old female presents with complaint left eye redness, blurry vision, pain behind left eye starting today while at work. Denies injury. No history of similar symptoms. All systems reviewed and negative except as noted above. Related Data Home Medications Medication Instructions Recorded Confirmed metoclopramide HCl 10 mg tablet 10 mg PO DAILY 08/17/20 09/07/22 omeprazole 40 mg capsule,delayed 40 mg PO BID 10/06/20 09/07/22 release Allergies Allergy/AdvReac Type Severity Reaction Status Date / Time No Known Allergies Allergy Verified 09/07/22 10:04 Review of Systems Review of Systems: CONSTITUTIONAL: Denies fever, chills, or sweats. EYES: Reports redness, blurry vision left eye. ENT: Denies rhinorrhea, congestion, sore throat, or otalgia. CARDIOVASCULAR: Denies chest pain, palpitations, or edema. RESPIRATORY: Denies cough or dyspnea. GASTROINTESTINAL: Denies abdominal pain, nausea, vomiting, or diarrhea. GENITOURINARY: Denies dysuria or hematuria. SKIN: Denies rash or itching. MUSCULOSKELETAL: Denies back pain, joint pain, or myalgia. NEUROLOGIC: Denies headache, numbness, or weakness. PSYCHIATRIC: Denies anxiety or depression. All other systems reviewed are negative, except as documented in HPI. [facility] Past Medical History Medical History Crohn's disease Hyperlipidemia MVP (mitral valve prolapse) Family History Family History Father Diabetes mellitus Hypertension Mother Diabetes mellitus Grandparent Diabetes mellitus Heart disease Grandparent Diabetes mellitus Social History Social History (System 04/09/21 @ 09:28 by Mami Garcia) Smoking packs per day: 0.5 Smoking cigarettes per day: 10.0 Years smoked: 16 Smoking pack-years: 8.00 Smoking status: Current every day smoker Tobacco type: cigarettes Second hand tobacco smoke exposure: Yes Alcohol intake: never Substance use: never Substance use type: does not use Additional living arrangements comments: SIGNIFICANT OTHER Gender identity (if verbalized by the patient): Female Spiritual care concerns: No Comments At time of signature, agree with nursing past medical, surgical, social and family history. There is no relevant family history pertinent to the presenting complaint. Exam Narrative: GENERAL: This is a well-nourished, well-developed patient, in no apparent distress. HEAD: normocephalic, atraumatic. EYES: PERRL. subconjuctival hemorrhaging lateral aspect left eye EARS: External ears normal NOSE: External nose normal NECK: Neck supple, non-tender without lymphadenopathy, masses or thyromegaly. CARDIOVASCULAR: Regular rate and rhythm without murmurs, gallops, or rubs. RESPIRATORY: Clear to auscultation. Breath sounds equal bilaterally. No wheezes, rales, or rhonchi. SKIN: warm, Dry, intact with no suspicious lesions or rash, good texture and turgor. NEURO: awake, alert, and oriented to person, place and time. There were no obvious focal neurologic abnormalities. EXTREMITIES: No joint tenderness, effusion, or edema noted. Course Course Level of Care: Express Care Visit Vital Signs Vital signs: Vital Signs Temperature 36.4 C 09/07/22 10:06 Pulse Rate 87 09/07/22 10:06 Respiratory Rate 18 09/07/22 10:06 Blood Pressure 127/79 09/07/22 10:06 Pulse Oximetry 100 09/07/22 10:06 Oxygen Delivery Room Air 09/07/22 10:06 Temperature 36.4 C 09/07/22 10:07 Pulse Rate 87 09/07/22 10:07 Respiratory Rate 18 09/07/22 10:07 Blood Pressure 127/79 09/07/22 10:07 Pulse Oximetry 100 09/07/22 10:07
== END 2022-09-07 10:55 | disposition home or self-care (01) ==
PROVIDERS: Emergency Provider Nurse Practitioner Family; PCP Family Medicine
DX: H53.8 Other visual disturbances (principal); H11.32 Conjunctival hemorrhage, left eye; F17.210 Nicotine dependence, cigarettes, uncomplicated; K50.90 Crohn's disease, unspecified, without complications; E78.5 Hyperlipidemia, unspecified; I34.1 Nonrheumatic mitral (valve) prolapse
CPT/HCPCS: 99212; G0463

== ENCOUNTER 2022-11-14 17:28 | Emergency (ER) | payer OTHER, SELFPAY ==
--- NOTE | ~2022-11-14 | CT_ITS ---
CT of the Abdomen and Pelvis: Indication: Abdominal pain Technique: 2.5 mm axial scans were obtained through the abdomen and pelvis following intravenous adm inistration of 100 cc of Omnipaque 350. Dose reduction technique was used on this scan by utilizing a utomated exposure control and iterative reconstruction technique. The dose-length product (DLP) was 2 28.26 mGy-cm. COMPARISON: 04/07/2021 Findings: Scans through the lung bases are unremarkable. The liver, spleen, pancreas, adrenals and kidneys are within normal limits. Cholecystectomy clips are present. No evidence of aortic aneurysm. No lymphadenopathy. There is wall thickening of the distal and terminal ileum. There is mild distention of several distal ileal small bowel loops. There is also apparent wall thickening of the mid to distal sigmoid colon. No abscess or free air evident. Images through the pelvis were performed. Urinary bladder is unremarkable. Probable small bilateral o varian cysts are present. Patient is status post hysterectomy. No ascites. Impression: Wall thickening of the distal terminal ileum with mild distention of several distal small bowel loops . Findings are compatible with Crohn's disease, with questionable element of low-grade partial obstru ction related to the terminal ileal wall thickening. Additional wall thickening of the mid to distal sigmoid colon. Findings could reflect colonic Crohn's disease lesion or other colitis. Colonic malignancy cannot be excluded. Consider colonoscopy as jared cated. Reviewed, dictated and finalized at [facility]. Impression: Wall thickening of the distal terminal ileum with mild distention of several di stal small bowel loops. Findings are compatible with Crohn's disease, with ques tionable element of low-grade partial obstruction related to the terminal ileal wall thickening. Additional wall thickening of the mid to distal sigmoid colon. Findings could r eflect colonic Crohn's disease lesion or other colitis. Colonic malignancy gerson ot be excluded. Consider colonoscopy as indicated.
--- NOTE | ~2022-11-14 | US_ITS ---
Pelvic ultrasound. Clinical History: Pelvic pain, ovarian cyst Technique: Realtime transabdominal and transvaginal scanning of the pelvis was performed. Color flow Doppler and Doppler spectral analysis were performed. Findings: The uterus is absent, compatible hysterectomy. The right ovary measures 1.8 x 0.9 x 0.9 cm. No significant right ovarian or adnexal mass is seen. There is a 1.8 x 1.5 x 1.5 cm left ovarian cyst, with a thin internal septation or small subcyst. Vascular flow present in both ovaries on Doppler spectral analysis. There is no evidence of free fluid in the cul de sac. Impression: 1.8 cm minimally complex left ovarian cyst. Reviewed, dictated and finalized at location . Impression: 1.8 cm minimally complex left ovarian cyst.
[2022-11-14 17:45] VITALS: BP 118/65; PULSE 83; RESP 16; TEMP 36.8; O2SAT 99
[2022-11-14 18:31] LABS: Basophils Absolute Auto 0.1 K/mm3 (0.0-0.1); Basophils Percent Auto 0.5 % (0.2-1.2); Eosinophils Absolute Auto 0.1 K/mm3 (0-0.3); Hematocrit 40.2 % (37.0-47.0); Hemoglobin 13.3 g/dL (12.0-15.0); Immature Granulocyte Absolute 0.03 K/mm3 (0.00-0.031); Immature Granulocyte Percent A 0.3 % (0-0.5); Lymphocytes Absolute Auto 2.57 K/mm3 (0.9-3.2); Lymphocytes Percent Auto 23.8 % (18.3-44.2); Mean Corpuscular HGB Conc 33.1 g/dl (32-36); Mean Corpuscular Hemoglobin 29.8 pg (26-34); Mean Corpuscular Volume 89.9 fl (80-100); Monocytes Absolute Auto 0.8 K/mm3 (0.1-0.6); Monocytes Percent Auto 7.5 % (2.6-8.5); Neutrophils Absolute Auto 7.2 K/mm3 (1.3-6.7); Neutrophils Percent Auto 66.9 % (45.5-73.1); Platelet Count Result 434 k/mm3 (150-375); Red Blood Count 4.47 M/mm3 (4.2-5.4); Red Cell Distribution Width 13.2 % (11.5-14.5); White Blood Count 10.8 K/mm3 (4.5-10.0)
[2022-11-14 18:41] LABS: Alanine Aminotransferase 17 U/L (6-35); Albumin Level 3.9 g/dL (3.5-5.1); Alkaline Phosphatase 91 U/L (38-126); Anion Gap 5 mmol/L (8-16); Aspartate Amino Transferase 27 U/L (14-36); Bilirubin,Total 0.6 mg/dL (0.2-1.3); Blood Urea Nitrogen 8 mg/dL (7-17); Calcium 8.4 mg/dL (8.4-10.2); Carbon Dioxide 28 mmol/L (22-30); Chloride 103 mmol/L (98-107); Estimated CRCL calculation 69 ml/min; Estimated Glomerular Filt Rate > 60; Glucose 101 mg/dL (65-110); Lipase 114 U/L (23-300); Potassium 3.8 mmol/L (3.4-5.0); Sodium 136 mmol/L (137-145)
[2022-11-14 18:55] LABS: Appearance Urine Clear (Clear); Bacteria Urine None Seen /hpf; Bilirubin Urine Negative (Negative); Blood Urine 2+ (Negative); Color Urine Yellow (Yellow); Glucose Urine UA Negative (Negative); Ketones Urine Negative (Negative); Leukocyte Esterase Ur Negative LEU/UL (Negative); Nitrate Urine Negative (Negative); Non Pathogenic Casts 0-2; Protein Urine Negative (Negative); RBC Urine 0-2 /hpf (0-2); Specific Grav Ur 1.006 (1.001-1.035); Squamous Epithelial Cell Urine None seen /hpf (Few); Urobilinogen Urine 0.2 mg/dL (<2.0); WBC Urine 0-5 /hpf; pH Urine 5.5 (5.0-9.0)
[2022-11-14 19:08] LABS: Add Urine Microscopic? YES
--- NOTE | 2022-11-14 21:59 | ED.ABDPAIN ---
HPI - Abdominal Pain General Chief Complaint: Abdominal Pain <JOANNE Jauregui Last Filed: 11/15/22 04:07> Stated Complaint: stomach pain <JOANNE Jauregui Last Filed: 11/15/22 04:07> Time Seen by Provider: 11/14/22 21:46 <JOANNE Jauregui Last Filed: 11/15/22 04:07> Source: patient <JOANNE Jauregui Last Filed: 11/15/22 04:07> Mode of arrival: ambulatory <JOANNE Jauregui Filed: 11/15/22 04:07> Limitations: no limitations <JOANNE Jauregui Last Filed: 11/15/22 04:07> History of Present Illness HPI narrative: Patient is a 47 y/o female who presents to the ED with c/o right lower abdominal pain. Patient reports having constant and progressively worsening pain in her mid and right lower abdomen, radiating around to her right lower back since Monday afternoon after having intercourse with her . She has been taking ibuprofen, Tylenol, gasX without much relief. States pain is worse with movement, laughing, coughing. She also reports having nausea, but denies vomiting, diarrhea, constipation, urinary symptoms, rectal bleeding, melena. Patient does have a history of kidney stones and Crohn's disease. She states this does not feel typical of her previous Crohn's flares. <JOANNE Jauregui Last Filed: 11/15/22 04:07> Related Data Home Medications: Home Medications Medication Instructions Recorded Confirmed metoclopramide HCl 10 mg tablet 10 mg PO DAILY 08/17/20 09/07/22 omeprazole 40 mg capsule,delayed 40 mg PO BID 10/06/20 09/07/22 release <JOANNE Jauregui Last Filed: 11/15/22 04:07> Allergies/Adverse Reactions: Allergies Allergy/AdvReac Type Severity Reaction Status Date / Time No Known Allergies Allergy Verified 11/14/22 17:47 <JOANNE Jauregui Last Filed: 11/15/22 04:07> Review of Systems Review of Systems: CONSTITUTIONAL: Denies fever, chills, or sweats. ENT: Denies rhinorrhea, congestion, sore throat. CARDIOVASCULAR: Denies chest pain. RESPIRATORY: Denies dyspnea. GASTROINTESTINAL: See HPI. GENITOURINARY: Denies dysuria or hematuria. SKIN: Denies rash or itching. MUSCULOSKELETAL: See HPI. NEUROLOGIC: Denies headache, numbness, or weakness. <Selena Solares PA-C - Last Filed: 11/15/22 04:07> All systems reviewed & are unremarkable except as noted in HPI and below <Selena Solares PA-C - Last Filed: 11/15/22 04:07> PMF Past Medical History Medical History: Medical History Crohn's disease History of kidney stones Hyperlipidemia MVP (mitral valve prolapse) <Selena Solares PA-C - Last Filed: 11/15/22 04:07> Surgical History Surgical History: Surgical History History of hysterectomy <Selena Solares PA-C - Last Filed: 11/15/22 04:07> Family History Family History: Family History Father Diabetes mellitus Hypertension Mother Diabetes mellitus Grandparent Diabetes mellitus Heart disease Grandparent Diabetes mellitus <Selena Solares PA-C - Last Filed: 11/15/22 04:07> Social History Social History: Social History Smoking packs per day: 0.5 Smoking cigarettes per day: 10.0 Years smoked: 16 Smoking pack-years: 8.00 Smoking status: Current every day smoker Tobacco type: cigarettes Second hand tobacco smoke exposure: Yes Alcohol intake: never Substance use: never Substance use type: does not use Living arrangements: other Additional living arrangements comments: SIGNIFICANT OTHER Gender identity (if verbalized by the patient): Female Spiritual care concerns: No <Selena Solares PA-C - Last Wallace
[2022-11-14] MEDS: ONDANSETRON INJ 4 MG/2 ML VIAL IV PUSH (22:43)
[2022-11-14] MEDS: MORPHINE SULFATE (*CRX) 4 MG/ML INJ IV PUSH (22:43)
[2022-11-14] MEDS: SODIUM CHLORIDE 0.9% IV 1,000 ML 999 ML IV CONT (22:43)
[2022-11-15 03:58] VITALS: BP 110/65; PULSE 64; RESP 15; O2SAT 100
[2022-11-15] MEDS: KETOROLAC 30 MG/ML VIAL (*BKC) IV PUSH (04:03)
== END 2022-11-15 04:14 | disposition home or self-care (01) ==
PROVIDERS: Emergency Medicine; Emergency Provider Physician Assistant; PCP Family Medicine
DX: N83.209 Unspecified ovarian cyst, unspecified side (principal); R10.31 Right lower quadrant pain; F17.210 Nicotine dependence, cigarettes, uncomplicated; Z87.442 Personal history of urinary calculi; K50.90 Crohn's disease, unspecified, without complications; E78.5 Hyperlipidemia, unspecified
CPT/HCPCS: 36415; 74177; 76830; 76856; 80053; 81001; 81025; 83690; 85025; 96365; 96375; 99284; J0131; J1885; J2270; J2405; J7030; Q9967